=== PATIENT | female | born 1995 | race Caucasian/White ===

== ENCOUNTER 2020-10-31 05:39 | Inpatient (IN) | payer OTHER ==
[~2020-10-31 05:39] MED LIST: LOVENOX40 MG/0.4 SC
[2020-10-31 07:53] LABS: HGB 10.4 g/dl (12.5-16.0); MCH 25.9 pg (25.0-31.0); MCHC 31.5 g/dL (32.0-36.0); MCV 82.3 fL (78.0-100.0); MPV 12.1 fL (6.0-9.5); RBC 4.01 M/uL (4.20-5.40); RDW 12.3 % (11.5-14.0); WBC 10.1 K/uL (4.0-10.5)
[2020-10-31 09:07] LABS: BILIRUBIN NEGATIVE (NEGATIVE); BLOOD NEGATIVE Ery/uL (NEGATIVE); CLARITY CLEAR (CLEAR); COLOR YELLOW (YELLOW); GLUCOSE (U) NORMAL (NORMAL); LEUKOCYTES NEGATIVE Leu/uL (NEGATIVE); NITRITE NEGATIVE (NEGATIVE); PROTEIN NEGATIVE (NEGATIVE); SPECIFIC GRAVITY >=1.030 (1.001-1.030); pH 6.5 (5.0-9.0)
[2020-11-01 05:20] LABS: HCT 32.5 % (37.0-47.0); HGB 10.3 g/dl (12.5-16.0); MCH 26.5 pg (25.0-31.0); MCHC 31.7 g/dL (32.0-36.0); MCV 83.5 fL (78.0-100.0); MPV 12.2 fL (6.0-9.5); RBC 3.89 M/uL (4.20-5.40); RDW 12.4 % (11.5-14.0); WBC 13.9 K/uL (4.0-10.5)
== END 2020-11-02 11:44 | disposition home or self-care (01) | DRG 805 ==
LOC: FOB 05:39 → FOD 07:06 → FOB 07:07
PROVIDERS: ADMIT Obstetrics & Gynecology
PROC: 10E0XZZ Delivery of Products of Conception, External Approach (ICD-10-PCS; principal; 2020-10-31)
PROC: 3E033VJ Introduction of Other Hormone into Peripheral Vein, Percutaneous Approach (ICD-10-PCS; 2020-10-31)
PROC: 10907ZC Drainage of Amniotic Fluid, Therapeutic from Products of Conception, Via Natural or Artificial Opening (ICD-10-PCS; 2020-10-31)
DX: O99.891 Other specified diseases and conditions complicating pregnancy (principal); U07.1 COVID-19; Z37.0 Single live birth; N13.30 Unspecified hydronephrosis; D62 Acute posthemorrhagic anemia; O98.513 Other viral diseases complicating pregnancy, third trimester; O44.43 Low lying placenta NOS or without hemorrhage, third trimester; Z3A.39 39 weeks gestation of pregnancy; O90.81 Anemia of the puerperium
CPT/HCPCS: 36415; 81003; J2300; J2405; J7120; U0002